=== PATIENT | female | born 1975 | race Caucasian/White ===

== ENCOUNTER 2022-08-25 11:08 | Outpatient (CLI) | payer OTHER, SELFPAY | END 2022-08-25 11:09 | disposition home or self-care (01) | LOC: NFLDREF 08-26 08:42 | PROVIDERS: Visit Provider Family Medicine | DX: Z01.419 Encounter for gynecological examination (general) (routine) without abnormal findings (principal); E78.5 Hyperlipidemia, unspecified; F32.A Depression, unspecified; E66.01 Morbid (severe) obesity due to excess calories; D22.9 Melanocytic nevi, unspecified; F41.9 Anxiety disorder, unspecified; F33.42 Major depressive disorder, recurrent, in full remission; L70.0 Acne vulgaris; Z68.41 Body mass index [BMI] 40.0-44.9, adult | CPT/HCPCS: 80053; 80061 ==

== ENCOUNTER 2022-11-19 11:10 | Outpatient (CLI) | payer OTHER, SELFPAY | END 2022-11-19 11:11 | disposition home or self-care (01) | PROVIDERS: PCP Family Medicine; Visit Provider Family Medicine | DX: R53.83 Other fatigue (principal); E66.01 Morbid (severe) obesity due to excess calories; N95.1 Menopausal and female climacteric states | CPT/HCPCS: 82728; 83001; 84443 ==

== ENCOUNTER 2023-08-26 08:39 | Outpatient (CLI) | payer BC, SELFPAY | END 2023-08-26 08:40 | disposition home or self-care (01) | LOC: NFLDREF 08-29 04:44 | PROVIDERS: PCP Family Medicine; Referring Provider Family Medicine; Visit Provider Family Medicine | DX: E78.5 Hyperlipidemia, unspecified (principal); E66.01 Morbid (severe) obesity due to excess calories; Z68.41 Body mass index [BMI] 40.0-44.9, adult; Z13.228 Encounter for screening for other metabolic disorders | CPT/HCPCS: 80053; 80061 ==

== ENCOUNTER 2023-11-24 08:27 | Outpatient (CLI) | payer BC, SELFPAY | END 2023-11-24 08:28 | disposition home or self-care (01) | LOC: NFLDREF 15:09 | PROVIDERS: PCP Family Medicine; Referring Provider Family Medicine; Visit Provider Family Medicine | DX: E78.5 Hyperlipidemia, unspecified (principal); R73.9 Hyperglycemia, unspecified | CPT/HCPCS: 80061 ==

== ENCOUNTER 2024-08-17 08:15 | Outpatient (CLI) | payer BC, SELFPAY | END 2024-08-17 08:16 | disposition home or self-care (01) | LOC: NFLDREF 08-21 15:35 | PROVIDERS: PCP Family Medicine; Referring Provider Family Medicine; Visit Provider Family Medicine | DX: E78.5 Hyperlipidemia, unspecified (principal); R73.03 Prediabetes; R53.83 Other fatigue | CPT/HCPCS: 80053; 80061 ==